=== PATIENT | female | born 1965 | race Caucasian/White ===

== ENCOUNTER 2017-11-22 17:37 | Emergency (ER) | payer OTHER ==
[2017-11-22 18:24] LABS: ABS Basophils 0 10^3/ul (0-0.2); ABS Eosinophils 0.3 10^3/ul (0-0.6); ABS Lymphocytes 3.1 10^3/ul (1.0-4.8); ABS Monocytes 0.4 10^3/ul (0-0.8); ABS Neutrophils 3.6 10^3/ul (1.5-7.7); ABS Nucleated RBC 0 10^3/ul; Eosinophil % 3.9 % (0-6); Hematocrit 39 % (35-47); Hemoglobin 13.1 g/dl (12.0-16.0); Lymphocyte % 41.6 % (25-47); Mean Corpuscular HGB Conc 34 g/dl (31-36); Mean Corpuscular Hemoglobin 31 pg (27-31); Mean Corpuscular Volume 91 fL (80-97); Mean Platelet Volume 7.5 um3 (7.4-10.4); Nucleated Red Blood Cells % 0; Platelet Count 272 10^3/ul (150-450); Red Blood Count 4.23 10^6/ul (4.0-5.4); Red Cell Distribution Width 13 % (10.5-15); White Blood Count 7.3 10^3/ul (3.5-10.8)
[2017-11-22 18:41] LABS: EGFR Non-African American 60.6 (>60)
[2017-11-22] MEDS ORDERED: Naproxen TAB* 250 MG PO ONE (20:04)
[2017-11-22] MEDS ORDERED: Cyclobenzaprine TAB* 10 MG PO ONE (20:04)
[2017-11-22 20:07] LABS: Urine Appearance Clear; Urine Blood Negative (Negative); Urine Color Straw; Urine Ketones Negative (Negative); Urine Protein Negative (Negative); Urine Specific Gravity 1.008 (1.010-1.030); Urine Urobilinogen Negative (Negative)
[2017-11-22 20:30] VITALS: BP 156/79
--- NOTE | 2017-11-22 22:04 | ED ---
Anthony Cifuentes Natalie, scribed for Chip Brunner MD on 11/22/17 at 2007 . Abdominal Pain/Female - HPI Summary HPI Summary: The patient is a 52 y/o F presenting to the ED accompanied by c/o constant RLQ abd pain since the night of 11/18/17. She lifted two cases of water , and the pain began immediately after. The pain is rated 8/10 in severity. The pain worsens with palpation and tension. The pain is alleviated by nothing. 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 She denies fever, nausea , vomiting, diarrhea, constipation, and urinary symptoms. She has hx of ovary removal and umbilical hernia. - History of Current Complaint Chief Complaint: EDAbdPain Stated Complaint: RT SIDE ABD PAIN Time Seen by Provider: 11/22/17 19:54 Hx Obtained From: Patient Hx Last Menstrual Period: 2 weeks ago Onset/Duration: Sudden Onset, Lasting Days - starting 11/18/17, Still Present Timing: Constant Severity Initially: Severe Severity Currently: Severe Pain Intensity: 8 Pain Scale Used: 0-10 Numeric Location: Discrete At: RLQ Radiates: No Aggravating Factor(s): Other: - palpation and tension Alleviating Factor(s): Nothing Associated Signs and Symptoms: Negative: Fever, Constipation, Urinary Symptoms, Nausea, Vomiting, Diarrhea Allergies/Adverse Reactions: Allergies Allergy/AdvReac Type Severity Reaction Status Date / Time latex Allergy Hives Verified 11/22/17 17:43 Penicillins Allergy Hives/Diff. Verified 11/22/17 17:43 Breathing/I tching shellfish derived Allergy Anaphylatic Verified 11/22/17 17:44 Shock strawberry Allergy Hives Verified 11/22/17 17:43 [place] Fish Allergy Airway Uncoded 05/30/16 20:00 Obstruction PMH/Surg Hx/FS Hx/Imm Hx Endocrine/Hematology History: Denies: Hx Diabetes, Hx Thyroid Disease Cardiovascular History: Denies: Hx Hypertension, Hx Pacemaker/ICD Respiratory History: Reports: Hx Asthma Denies: Hx Chronic Obstructive Pulmonary Disease (COPD) GI History: Denies: Hx Ulcer History: Denies: Hx Renal Disease Sensory History: Denies: Hx Hearing Aid Psychiatric History: Denies: Hx Panic Disorder - Cancer History Hx Chemotherapy: No Hx Radiation Therapy: No - Surgical History Surgery Procedure, Year, and Place: umbilical hernia 2000. ovary removed Infectious Disease History: Yes Infectious Disease History: Denies: Hx Clostridium Difficile, Hx Hepatitis, Hx Human Immunodeficiency Virus (HIV), Hx of Known/Suspected MRSA, Hx Shingles, Hx Tuberculosis, Hx Known/ Suspected VRE, Hx Known/Suspected VRSA, History Other Infectious Disease, Traveled Outside the [place] in Last 30 Days - Family History Known Family History: Positive: Hypertension - Social History Alcohol Use: None Substance Use Type: Reports: None Smoking Status (MU): Heavy Every Day Tobacco Smoker Type: Cigarettes Amount Used/How Often: 1 ppd Length of Time of Smoking/Using Tobacco: 30 years Have You Smoked in the Last Year: Yes Review of Systems Negative: Fever Positive: Abdominal Pain - RLQ. Negative: Vomiting, Diarrhea, Nausea Genitourinary: Negative - urinary symptoms All Other Systems Reviewed And Are Negative: Yes Physical Exam - Summary Physical Exam Summary: Appearance: Well appearing, no pain distress Skin: warm, dry, reflects adequate perfusion Head/face: normal Eyes: EOMI, HANANE ENT: normal Neck: supple, non-tender Respiratory: CTA, breath sounds present Cardiovascular: RRR, pulses symmetrical Abdomen: Soft. Tenderness in abd wall in right mid abd through suprapubic area. RLQ was palpated through the flank without tenderness, rebound, or guarding. Pain with movement. The area was examined with bedside ultrasound; there was no hematoma or hernia present in the exam. Abdominal binding was applied. Bowel Sounds: present Musculoskeletal: normal, strength/ROM intact Neuro: normal, sensory motor intact, A&Ox3 Triage Information Reviewed: Yes Vital Signs On Initial Exam: Initial Vitals Temp Pulse Resp BP Pulse Ox 97.3 F 78 15 152/70 100 11/22/17 17:40 11/22/17 17:40 11/22/17 17:40 11/22/17 17:40 11/22/17 17:40 Vital Signs Reviewed: Yes Diagnostics - Vital Signs Vital Signs Temp Pulse Resp BP Pulse Ox 11/22/17 17:40 97.3 F 78 15 152/70 100 - Laboratory Lab Results: Lab Results 11/22/17 11/22/17 11/22/17 Range/Units 18:14 18:14 18:14 WBC 7.3 (3.5-10.8) 10^3/ul RBC 4.23 (4.0-5.4) 10^6/ul Hgb 13.1 (12.0-16.0) g/dl Hct 39 (35-47) % MCV 91 (80-97) fL MCH 31 (27-31) pg MCHC 34 (31-36) g/dl RDW 13 (10.5-15) % Plt Count 272 (150-450) 10^3/ul MPV 7.5 (7.4-10.4) um3 Neut % (Auto) 48.7 (38-83) % Lymph % (Auto) 41.6 (25-47) % [place] % (Auto) 5.2 (0-7) % Eos % (Auto) 3.9 (0-6) % Baso % (Auto) 0.6 (0-2) % Absolute Neuts (auto) 3.6 (1.5-7.7) 10^3/ul Absolute Lymphs (auto) 3.1 (1.0-4.8) 10^3/ul Absolute Monos (auto) 0.4 (0-0.8) 10^3/ul Absolute Eos (auto) 0.3 (0-0.6) 10^3/ul Absolute Basos (auto) 0 (0-0.2) 10^3/ul Absolute Nucleated RBC 0 10^3/ul Nucleated RBC % 0 Sodium 139 (139-145) mmol/L Potassium 4.0 (3.5-5.0) mmol/L Chloride 105 (101-111) mmol/L Carbon Dioxide 28 (22-32) mmol/L Anion Gap 6 (2-11) mmol/L BUN 16 (6-24) mg/dL Creatinine 0.96 H (0.51-0.95) mg/dL Est GFR ( Amer) 77.9 (>60) Est GFR (Non-Af Amer) 60.6 (>60) BUN/Creatinine Ratio 16.7 (8-20) Glucose 99 (70-100) mg/dL Lactic Acid 0.4 L (0.5-2.0) mmol/L Calcium 9.0 (8.6-10.3) mg/dL Total Bilirubin 0.30 (0.2-1.0) mg/dL AST 12 L (13-39) U/L ALT 8 (7-52) U/L Alkaline Phosphatase 103 (34-104) U/L C-Reactive Protein 6.10 H (< 5.00) mg/L Total Protein 6.9 (6.4-8.9) g/dL Albumin 4.1 (3.2-5.2) g/dL Globulin 2.8 (2-4) g/dL Albumin/Globulin Ratio 1.5 (1-3) Lipase 10 L (11.0-82.0) U/L Result Diagrams: 11/22/17 18:14 11/22/17 18:14 Lab Statement: Any lab studies that have been ordered have been reviewed, and results considered in the medical decision making process. Abdominal Pain Fem Course/Dx - Course Course Of Treatment: Patient with abrupt onset of pain in her right low abdomen after lifting 2 cases of water. She has no pain at rest. I was able to examine the right lower quadrant through the flank and there is no tenderness underneath the abdominal wall. It appears she has been treated to the rectus musculature. I examined it with bedside ultrasound which showed no hematoma, fluid collection or hernia in the area of discomfort. She was given an abdominal binder which helped and treated with oral medications. Her abdominal laboratories are benign. She is discharged in good condition to follow up with her primary care physician which was provided to her. - Diagnoses Differential Diagnosis: Positive: Other - Abdominal wall pain, appendicitis, ovarian cyst, diverticulitis, AAA Provider Diagnoses: Strain of rectus abdominis muscle Discharge - Sign-Out/Discharge Documenting (check all that apply): Discharge/Admit/Transfer - Discharge Plan Condition: Good Disposition: HOME Prescriptions: Cyclobenzaprine (NF) [Cyclobenzaprine 5 MG (NF)] 5 mg PO TID PRN #12 tab PRN Reason: muscle pain Naproxen [Naproxen 500 mg tab] 500 mg PO DAILY PRN #10 tablet. PRN Reason: Pain Patient Education Materials: Abdominal Exercises (GEN) Referrals: [facility] [Outside] Additional Instructions: Massage, icing and stretching may help. Call a chiropractor for therapy in the area. Return with fever, vomiting, worse or other concerns as discussed. Where the provided abdominal binder as needed for discomfort. - Billing Disposition and Condition Condition: GOOD Disposition: HOME The documentation as recorded by the Anthony ryan Natalie accurately reflects the service I personally performed and the decisions made by Myesha cr Kirk, MD.
== END 2017-11-22 20:30 | disposition home or self-care (01) ==
LOC: ED 17:37
DX: S39.011A Strain of muscle, fascia and tendon of abdomen, initial encounter (principal); X50.0XXA Overexertion from strenuous movement or load, initial encounter; Y92.9 Unspecified place or not applicable; F17.210 Nicotine dependence, cigarettes, uncomplicated; Z88.0 Allergy status to penicillin
CPT/HCPCS: 36415; 80053; 81003; 83605; 83690; 85025; 86140; 99282; A9270-GY

== ENCOUNTER → 2018-02-18 15:25 | Emergency (ER) | payer OTHER ==
[~2018-02-18 15:25] MED LIST: Ibuprofen TAB* 800 MG PO ONE
[2018-02-18 15:40] VITALS: BP 145/73
--- NOTE | 2018-02-18 16:33 | ED ---
Upper Extremity Pain - HPI Summary HPI Summary: [id number] patient presents with right elbow pain since smacking her elbow against the door frame 2 days ago. She reports she was attempting to carry objects into her house and as she was walking to the door frame, she struck her right elbow against the metal frame causing her pain. She developed swelling and redness progressed over the next 2 days. Swelling is migrating into her proximal forearm. She is able to flex and extend her elbow however it is painful. She denies numbness tingling or weakness however she has a pain that radiates into her index finger. This is not made worse with movements. 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 She has tried ibuprofen which helps with the pain. She has not tried any ice but is open to trying this today. Denies fever, chills, fatigue. She has no other health issues and takes no medications. - History of Current Complaint Chief Complaint: EDExtremityUpper Stated Complaint: RT ELBOW INJURY Time Seen by Provider: 02/18/18 15:47 Hx Obtained From: Patient, Family/Business Data Analyst - , son Hx Last Menstrual Period: 2 weeks ago - Allergies/Home Medications Allergies/Adverse Reactions: Allergies Allergy/AdvReac Type Severity Reaction Status Date / Time latex Allergy Hives Verified 02/18/18 15:41 Penicillins Allergy Hives/Diff. Verified 02/18/18 15:41 Breathing/I tching shellfish derived Allergy Anaphylatic Verified 02/18/18 15:41 Shock strawberry Allergy Hives Verified 02/18/18 15:41 [place] Fish Allergy Airway Uncoded 02/18/18 15:41 Obstruction Home Medications: Home Medications NK [No Home Medications Reported] 02/18/18 [History Confirmed 02/18/18] PMH/Surg Hx/FS Hx/Imm Hx Previously Healthy: Yes Endocrine/Hematology History: Denies: Hx Anticoagulant Therapy, Hx Blood Disorders, Hx Diabetes, Hx Thyroid Disease Cardiovascular History: Denies: Hx Hypertension, Hx Pacemaker/ICD Respiratory History: Reports: Hx Asthma Denies: Hx Chronic Obstructive Pulmonary Disease (COPD) GI History: Denies: Hx Ulcer History: Denies: Hx Renal Disease Sensory History: Reports: Hx Contacts or Glasses Denies: Hx Hearing Aid Opthamlomology History: Reports: Hx Contacts or Glasses Psychiatric History: Denies: Hx Panic Disorder - Cancer History Hx Chemotherapy: No Hx Radiation Therapy: No - Surgical History Surgery Procedure, Year, and Place: umbilical hernia 2000. 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 Lives: With Family Alcohol Use: None Hx Substance Use: No Substance Use Type: Reports: None Hx Tobacco Use: Yes Smoking Status (MU): Current Every Day Smoker Type: Cigarettes Amount Used/How Often: 1 ppd Length of Time of Smoking/Using Tobacco: 30 years Have You Smoked in the Last Year: Yes Review of Systems Constitutional: Negative Negative: Fever, Chills, Fatigue Positive: no symptoms reported Positive: Arthralgia, Myalgia, Decreased ROM - mild of the elbow, Edema Positive: Bruising Neurological: Negative Negative: Weakness, Paresthesia, Numbness Psychological: Normal All Other Systems Reviewed And Are Negative: Yes Physical Exam Triage Information Reviewed: Yes Vital Signs On Initial Exam: Initial Vitals Temp Pulse Resp BP Pulse Ox 98.3 F 101 17 145/73 100 02/18/18 15:32 02/18/18 15:32 02/18/18 15:32 02/18/18 15:32 02/18/18 15:32 Vital Signs Reviewed: Yes Appearance: Positive: Well-Appearing, Well-Nourished, Pain Distress - mild to moderate Skin: Positive: Warm, Skin Color Reflects Adequate Perfusion, Dry - mild erythema w/ ecchymosis over skin of posterior elbow - no streaking, no lesions, no skin breakdown ENT: Positive: Hearing grossly normal Respiratory/Lung Sounds: Positive: Breath Sounds Present Cardiovascular: Positive: Pulses are Symmetrical in both Upper and Lower Extremities Musculoskeletal: Positive: Strength/ROM Intact - can move into flexion and extension but causes pain in elbow; no gross deformity, Pain @ - elbow TTP Neurological: Positive: Normal, Sensory/Motor Intact, Alert, Oriented to Person Place, Time, CN Intact II-III Psychiatric: Positive: Normal Diagnostics - Vital Signs Vital Signs Temp Pulse Resp BP Pulse Ox 02/18/18 15:32 98.3 F 101 17 145/73 100 - Laboratory Lab Statement: Any lab studies that have been ordered have been reviewed, and results considered in the medical decision making process. Course/Dx - Course Course Of Treatment: XR w/o acute fx, dislocation or effusion. Suspect contusion w/ w/o some degree of bursitis. Advise RICE and f/u w/ PCP this week. If danger s/sx present, return to ED. - Diagnoses Provider Diagnoses: Contusion of right elbow Discharge - Sign-Out/Discharge Documenting (check all that apply): Patient Departure - Discharge Plan Condition: Stable Disposition: HOME Patient Education Materials: Contusion in Adults (ED) Forms: *Work Release Referrals: [facility] [Outside] Additional Instructions: Rest, ice, elevate and compress with COLEEN wrap Take ibuprofen with food every 6 hours as needed for pain/swelling Follow-up with PCP at end of this week - call Tuesday to schedule an appointment - if worse, may warrant further testing *if you develop numbness, tingling, weakness, return to ED - Billing Disposition and Condition Condition: STABLE Disposition: Home
--- NOTE | 2018-02-18 17:14 | RAD ---
HISTORY: Rt elbow injury - slammed into door COMPARISONS: None VIEWS: 4, Frontal, lateral, and oblique views of the right elbow FINDINGS: BONE DENSITY: Normal. BONES: There is no displaced fracture. JOINTS: There is no arthropathy. ALIGNMENT: There is no dislocation. SOFT TISSUES: There is soft tissue swelling along the right than on. OTHER FINDINGS: None. IMPRESSION: SOFT TISSUE SWELLING. NO ACUTE OSSEOUS INJURY. IF SYMPTOMS PERSIST, RECOMMEND REPEAT IMAGING.
== END | disposition home or self-care (01) ==
LOC: ED 15:25
DX: S50.01XA Contusion of right elbow, initial encounter (principal); W22.09XA Striking against other stationary object, initial encounter; Y93.9 Activity, unspecified; Y92.008 Other place in unspecified non-institutional (private) residence as the place of occurrence of the external cause; Z91.040 Latex allergy status; Z88.0 Allergy status to penicillin; Z91.013 Allergy to seafood; Z91.018 Allergy to other foods; F17.210 Nicotine dependence, cigarettes, uncomplicated
CPT/HCPCS: 99282; A9270-GY

== ENCOUNTER 2018-07-01 14:10 | Emergency (ER) | payer OTHER ==
[2018-07-01 14:35] VITALS: BP 142/69
--- NOTE | 2018-07-01 14:52 | UC ---
Lower Extremity/Ankle HPI - HPI Summary HPI Summary: Pt fell today and while she was falling got her R ankle caught between two tree stumps which held her ankle in place. She was chasing her dog. reports some pain when walking. - History of Current Complaint Chief Complaint: UCLowerExtremity Stated Complaint: R FOOT INJURY Time Seen by Provider: 07/01/18 14:39 Hx Obtained From: Patient Hx Last Menstrual Period: na ?: No Onset/Duration: Sudden Onset Pain Intensity: 8 Pain Scale Used: 0-10 Numeric Aggravating Factor(s): Standing, Ambulation Alleviating Factor(s): Rest Able to Bear Weight: No - Allergies/Home Medications Allergies/Adverse Reactions: Allergies Allergy/AdvReac Type Severity Reaction Status Date / Time latex Allergy Hives Verified 07/01/18 14:35 Penicillins Allergy Hives/Diff. Verified 07/01/18 14:35 Breathing/I tching shellfish derived Allergy Anaphylatic Verified 07/01/18 14:35 Shock strawberry Allergy Hives Verified 07/01/18 14:35 [place] Fish Allergy Airway Uncoded 07/01/18 14:35 Obstruction PMH/Surg Hx/FS Hx/Imm Hx Previously Healthy: Yes Other History Of: Negative For: Anticoagulant Therapy - Surgical History Surgical History: Yes Surgery Procedure, Year, and Place: umbilical hernia 2000. ovary removed - Family History Known Family History: Positive: Cardiac Disease, Hypertension, Diabetes, Other - hyperlipidemia, gout, cancer - Social History Alcohol Use: None Substance Use Type: None Smoking Status (MU): Current Every Day Smoker Type: Cigarettes Amount Used/How Often: 1 ppd Length of Time of Smoking/Using Tobacco: 30 years Have You Smoked in the Last Year: Yes Review of Systems All Other Systems Reviewed And Are Negative: Yes Constitutional: Positive: Negative Skin: Positive: Negative. Negative: Bruising Motor: Negative: Decreased ROM, Weakness Neurovascular: Negative: Decreased Sensation, Decreased Pulses Musculoskeletal: Positive: Arthralgia - R ankle Physical Exam Triage Information Reviewed: Yes Appearance: Well-Appearing Vital Signs: Initial Vital Signs Temp 97.9 F 07/01/18 14:31 Pulse 80 07/01/18 14:31 Resp 18 07/01/18 14:31 BP 142/69 07/01/18 14:31 Pulse Ox 100 07/01/18 14:31 Vital Signs Reviewed: Yes Respiratory Exam: Normal Cardiovascular Exam: Normal Musculoskeletal: Positive: Strength Intact, ROM Intact, No Edema Skin Exam: Normal Lower Extremity Course/Dx - Course Course Of Treatment: Pt fell today and while she was falling got her R ankle caught between two tree stumps which held her ankle in place. XRAYs unremarkable and exam did show some tenderness w/out swelling or bruising. - Differential Dx/Diagnosis Differential Diagnosis/HQI/PQRI: Arthritis, Contusion, Fracture (Closed), Sprain , Strain Provider Diagnosis: Ankle sprain Discharge - Sign-Out/Discharge Documenting (check all that apply): Patient Departure All imaging exams completed and their final reports reviewed: Yes - Discharge Plan Condition: Good Disposition: HOME Prescriptions: Ibuprofen [Ibu] 600 mg PO TID #60 tablet Patient Education Materials: Foot Sprain (ED) Referrals: No Primary Care Phys,NOPCP [Primary Care Provider] - Additional Instructions: if pain persists please follow up with your pcp - Billing Disposition and Condition Condition: GOOD Disposition: Home
== END 2018-07-01 15:25 | disposition home or self-care (01) ==
LOC: UCEAST 14:10
DX: M25.571 Pain in right ankle and joints of right foot (principal); F17.210 Nicotine dependence, cigarettes, uncomplicated; Z88.0 Allergy status to penicillin; Z91.040 Latex allergy status; Z91.018 Allergy to other foods; Z91.013 Allergy to seafood; W19.XXXA Unspecified fall, initial encounter; Y92.9 Unspecified place or not applicable; W23.0XXA Caught, crushed, jammed, or pinched between moving objects, initial encounter
CPT/HCPCS: 99212; G0463

== ENCOUNTER 2018-10-05 15:29 | Emergency (ER) | payer BC, OTHER ==
[2018-10-05] MEDS ORDERED: Nitroglycerin TAB 0.4 MG* 0.4 MG TAB SL ONE (15:48)
[2018-10-05] MEDS ORDERED: Aspirin 81 mg CHEW TAB* 81 MG TAB.CHEW PO ONE (15:50)
[2018-10-05 16:12] LABS: ABS Basophils 0 10^3/ul (0-0.2); ABS Eosinophils 0.2 10^3/ul (0-0.6); ABS Monocytes 0.3 10^3/ul (0-0.8); ABS Neutrophils 2.5 10^3/ul (1.5-7.7); ABS Nucleated RBC 0 10^3/ul; Eosinophil % 3.9 %; Hematocrit 40 % (33-41); Hemoglobin 13.5 g/dL (12.0-16.0); Lymphocyte % 49.1 %; Mean Corpuscular HGB Conc 34 g/dL (31-36); Mean Corpuscular Hemoglobin 31 pg (27-31); Mean Corpuscular Volume 91 fL (80-97); Mean Platelet Volume 7.6 fL (7.4-10.4); Nucleated Red Blood Cells % 0.1; Platelet Count 273 10^3/uL (150-450); Red Blood Count 4.34 10^6 /uL (3.70-4.87); Red Cell Distribution Width 13 % (10.5-15); White Blood Count 6.1 10^3/uL (3.5-10.8)
[2018-10-05 16:28] LABS: INR 0.89 (0.77-1.02)
[2018-10-05 16:31] LABS: Albumin 4.5 g/dL (3.2-5.2); Albumin/Globulin Ratio 1.6 (1-3); BUN/Creatinine Ratio 17.9 (8-20); Calcium 9.7 mg/dL (8.6-10.3); EGFR African American 85.2 (>60); EGFR Non-African American 70.4 (>60); Globulin 2.9 g/dL (2-4); Magnesium 1.8 mg/dL (1.9-2.7); Potassium 3.7 mmol/L (3.5-5.0); Total Bilirubin 0.4 mg/dL (0.2-1.0); Total Protein 7.4 g/dL (6.4-8.9)
[2018-10-05 16:49] LABS: TSH (Thyroid Stimulating Horm) 6.74 mcIU/mL (0.34-5.60)
--- NOTE | 2018-10-05 19:04 | ED ---
HPI Chest Pain - HPI Summary HPI Summary: Patient complains of sudden onset left side chest pain starting at 1 PM with radiation to left arm and numbness and tingling in left hand. Chest pain described as constant, stabbing, pressure, new onset. Occurred while patient was cooking, at worst 10/10. Chest pain here in the ED rated 6/10 during history of present illness. Patient denies trauma, SOB, fever, cough, sore throat, N/V/D, diaphoresis, abdominal pain, change in urine, change in BM. Also denies street estrogen supplements, blood clots, recent surgery, recent trauma, recent long travel, history of recent immobility or unilateral leg pain. Patient denies medical history, but states she does not have a primary care doctor and has not seen one for as long as she can remember. Positive family cardiac history, mom had PR and CVA at age 65. Positive smoker for many years, denies EtOH or recreational stimulants. - History of Current Complaint Chief Complaint: EDChestPainROMI Time Seen by Provider: 10/05/18 15:37 Hx Obtained From: Patient Hx Last Menstrual Period: na Onset/Duration: Started Hours Ago Timing: Constant, Lasting Hours Initial Severity: Mild Current Severity: Moderate Pain Intensity: 6 Pain Scale Used: 0-10 Numeric Chest Pain Radiates: Yes Chest Pain Radiates To:: Arm Character: Pressure/Squeezing, Sharp/Stabbing Aggravating Factor(s): Nothing Alleviating Factor(s): Nothing Associated Signs and Symptoms: Positive: Chest Pain, Numbness, Tingling - Allergy/Home Medications Allergies/Adverse Reactions: Allergies Allergy/AdvReac Type Severity Reaction Status Date / Time latex Allergy Hives Verified 10/05/18 15:35 Penicillins Allergy Hives/Diff. Verified 10/05/18 15:35 Breathing/I tching shellfish derived Allergy Anaphylatic Verified 10/05/18 15:35 Shock strawberry Allergy Hives Verified 10/05/18 15:35 Sampson Fish Allergy Airway Uncoded 07/01/18 14:35 Obstruction PMH/Surg Hx/FS Hx/Imm Hx Endocrine/Hematology History: Denies: Hx Anticoagulant Therapy, Hx Blood Disorders, Hx Diabetes, Hx Thyroid Disease Cardiovascular History: Denies: Hx Hypertension, Hx Pacemaker/ICD Respiratory History: Reports: Hx Asthma Denies: Hx Chronic Obstructive Pulmonary Disease (COPD) GI History: Denies: Hx Ulcer History: Denies: Hx Renal Disease Sensory History: Reports: Hx Contacts or Glasses Denies: Hx Hearing Aid Opthamlomology History: Reports: Hx Contacts or Glasses EENT History: Denies: Hx Deafness Neurological History: Denies: Hx Dementia Psychiatric History: Denies: Hx Panic Disorder - Cancer History Hx Chemotherapy: No Hx Radiation Therapy: No - Surgical History Surgery Procedure, Year, and Place: umbilical hernia 2000. ovary removed Infectious Disease History: No Infectious Disease History: Denies: Hx Clostridium Difficile, Hx Hepatitis, Hx Human Immunodeficiency Virus (HIV), Hx of Known/Suspected MRSA, Hx Shingles, Hx Tuberculosis, Hx Known/ Suspected VRE, Hx Known/Suspected VRSA, History Other Infectious Disease, Traveled Outside the [place] in Last 30 Days - Family History Known Family History: Positive: Cardiac Disease, Hypertension, Diabetes, Other - hyperlipidemia, gout, cancer - Social History Alcohol Use: None Hx Substance Use: No Substance Use Type: Reports: None Hx Tobacco Use: Yes Smoking Status (MU): Current Every Day Smoker Type: Cigarettes Amount Used/How Often: 1 ppd Length of Time of Smoking/Using Tobacco: 30 years Have You Smoked in the Last Year: Yes Review of Systems Constitutional: Negative Eyes: Negative ENT: Negative Positive: Chest Pain Respiratory: Negative Gastrointestinal: Negative Genitourinary: Negative Musculoskeletal: Negative Skin: Negative Neurological: Negative Psychological: Normal All Other Systems Reviewed And Are Negative: Yes Physical Exam - Summary Physical Exam Summary: Chest tender to palpation, but patient states is not exactly the same pain produced. Lung sounds clear to auscultation bilaterally. Heart regular rate and rhythm. Abdomen soft nontender. No signs of trauma to chest. Triage Information Reviewed: Yes Vital Signs On Initial Exam: Initial Vitals Temp Pulse Resp BP Pulse Ox 99.7 F 104 16 173/108 98 10/05/18 15:32 10/05/18 15:32 10/05/18 15:32 10/05/18 15:32 10/05/18 15:32 Vital Signs Reviewed: Yes Appearance: Positive: Well-Appearing Skin: Positive: Warm Head/Face: Positive: Normal Head/Face Inspection Eyes: Positive: Normal ENT: Positive: Normal ENT inspection Neck: Positive: Supple Respiratory/Lung Sounds: Positive: Clear to Auscultation Cardiovascular: Positive: Normal Abdomen Description: Positive: Nontender Musculoskeletal: Positive: Normal Neurological: Positive: Normal Psychiatric: Positive: Normal AVPU Assessment: Alert - Clifford Coma Scale Best Eye Response: 4 - Spontaneous Best Motor Response: 6 - Obeys Commands Best Verbal Response: 5 - Oriented Coma Scale Total: 15 Diagnostics - Vital Signs Vital Signs Temp Pulse Resp BP Pulse Ox 10/05/18 17:20 75 13 133/73 97 10/05/18 17:05 76 19 144/75 98 10/05/18 17:01 75 19 96 10/05/18 16:50 77 15 145/71 98 10/05/18 16:33 14 125/56 10/05/18 16:23 14 128/68 10/05/18 16:14 13 163/71 10/05/18 16:01 14 10/05/18 15:45 96 12 184/88 97 10/05/18 15:42 115 10/05/18 15:32 99.7 F 104 16 173/108 98 - Laboratory Lab Results: Lab Results 10/05/18 10/05/18 10/05/18 Range/Units 15:54 15:54 15:54 WBC 6.1 (3.5-10.8) 10^3/uL RBC 4.34 (3.70-4.87) 10^6 /uL Hgb 13.5 (12.0-16.0) g/dL Hct 40 (33-41) % MCV 91 (80-97) fL MCH 31 (27-31) pg MCHC 34 (31-36) g/dL RDW 13 (10.5-15) % Plt Count 273 (150-450) 10^3/uL MPV 7.6 (7.4-10.4) fL Neut % (Auto) 41.2 % Lymph % (Auto) 49.1 % [place] % (Auto) 5.3 % Eos % (Auto) 3.9 % Baso % (Auto) 0.5 % Absolute Neuts (auto) 2.5 (1.5-7.7) 10^3/ul Absolute Lymphs (auto) 3.0 (1.0-4.8) 10^3/ul Absolute Monos (auto) 0.3 (0-0.8) 10^3/ul Absolute Eos (auto) 0.2 (0-0.6) 10^3/ul Absolute Basos (auto) 0 (0-0.2) 10^3/ul Absolute Nucleated RBC 0 10^3/ul Nucleated RBC % 0.1 INR (Anticoag Therapy) 0.89 (0.77-1.02) D-Dimer, Quantitative < 200 (Less Than 230) ng/mL Sodium 140 (135-145) mmol/L Potassium 3.7 (3.5-5.0) mmol/L Chloride 106 (101-111) mmol/L Carbon Dioxide 27 (22-32) mmol/L Anion Gap 7 (2-11) mmol/L BUN 15 (6-24) mg/dL Creatinine 0.84 (0.51-0.95) mg/dL Est GFR ( Amer) 85.2 (>60) Est GFR (Non-Af Amer) 70.4 (>60) BUN/Creatinine Ratio 17.9 (8-20) Glucose 99 (70-100) mg/dL Lactic Acid (0.5-2.0) mmol/L Calcium 9.7 (8.6-10.3) mg/dL Magnesium 1.8 L (1.9-2.7) mg/dL Total Bilirubin 0.40 (0.2-1.0) mg/dL AST 15 (13-39) U/L ALT 13 (7-52) U/L Alkaline Phosphatase 99 (34-104) U/L Troponin I 0.00 (<0.04) ng/mL B-Natriuretic Peptide (<=100) pg/mL Total Protein 7.4 (6.4-8.9) g/dL Albumin 4.5 (3.2-5.2) g/dL Globulin 2.9 (2-4) g/dL Albumin/Globulin Ratio 1.6 (1-3) TSH 6.74 H (0.34-5.60) mcIU/mL 10/05/18 10/05/18 Range/Units 15:54 15:54 WBC (3.5-10.8) 10^3/uL RBC (3.70-4.87) 10^6 /uL Hgb (12.0-16.0) g/dL Hct (33-41) % MCV (80-97) fL MCH (27-31) pg MCHC (31-36) g/dL RDW (10.5-15) % Plt Count (150-450) 10^3/uL MPV (7.4-10.4) fL Neut % (Auto) % Lymph % (Auto) % [place] % (Auto) % Eos % (Auto) % Baso % (Auto) % Absolute Neuts (auto) (1.5-7.7) 10^3/ul Absolute Lymphs (auto) (1.0-4.8) 10^3/ul Absolute Monos (auto) (0-0.8) 10^3/ul Absolute Eos (auto) (0-0.6) 10^3/ul Absolute Basos (auto) (0-0.2) 10^3/ul Absolute Nucleated RBC 10^3/ul Nucleated RBC % INR (Anticoag Therapy) (0.77-1.02) D-Dimer, Quantitative (Less Than 230) ng/mL Sodium (135-145) mmol/L Potassium (3.5-5.0) mmol/L Chloride (101-111) mmol/L Carbon Dioxide (22-32) mmol/L Anion Gap (2-11) mmol/L BUN (6-24) mg/dL Creatinine (0.51-0.95) mg/dL Est GFR ( Amer) (>60) Est GFR (Non-Af Amer) (>60) BUN/Creatinine Ratio (8-20) Glucose (70-100) mg/dL Lactic Acid 1.3 (0.5-2.0) mmol/L Calcium (8.6-10.3) mg/dL Magnesium (1.9-2.7) mg/dL Total Bilirubin (0.2-1.0) mg/dL AST (13-39) U/L ALT (7-52) U/L Alkaline Phosphatase (34-104) U/L Troponin I (<0.04) ng/mL B-Natriuretic Peptide 17 (<=100) pg/mL Total Protein (6.4-8.9) g/dL Albumin (3.2-5.2) g/dL Globulin (2-4) g/dL Albumin/Globulin Ratio (1-3) TSH (0.34-5.60) mcIU/mL Result Diagrams: 10/05/18 15:54 10/05/18 15:54 Lab Statement: Any lab studies that have been ordered have been reviewed, and results considered in the medical decision making process. Chest Pain Course/Dx - Course Course Of Treatment: Patient complains of sudden onset left side chest pain starting at 1 PM with radiation to left arm and numbness and tingling in left hand. Chest pain described as constant, stabbing, pressure, new onset. Occurred while patient was cooking, at worst 10/10. Chest pain here in the ED rated 6/10 during history of present illness. Patient denies trauma, SOB, fever , cough, sore throat, N/V/D, diaphoresis, abdominal pain, change in urine, change in BM. Also denies street estrogen supplements, blood clots, recent surgery, recent trauma, recent long travel, history of recent immobility or unilateral leg pain. Patient denies medical history, but states she does not have a primary care doctor and has not seen one for as long as she can remember. Positive family cardiac history, mom had PR and CVA at age 65. Positive smoker for many years, denies EtOH or recreational stimulants. Physical exam:Chest tender to palpation, but patient states is not exactly the same pain produced. Lung sounds clear to auscultation bilaterally. Heart regular rate and rhythm. Abdomen soft nontender. No signs of trauma to chest. Patient initially tachycardic, with elevated blood pressure of 183 SBP. Patient was given aspirin and 1 sublingual nitrogen which reduced her blood pressure to 118 SBP where it has remained. Patient states chest pain dropped from 7/10 to 5/10. On reexam: patient's chest pain continues to improve, now rated 4/10, in no apparent distress, playing with her phone. Labs unremarkable. First and second cardiac enzymes normal. First EKG sinus rhythm with some mild possible ST depression changes in V5 when compared to prior from 2010. Second EKG sinus rhythm without change from EKG 2011. Chest x-ray unremarkable. Discussed patient with attending Dr. Aguillon who recommends admission for stress test, given risk factors of family history, smoking and unknown medical history, and response to nitroglycerin SL. After confirming repeatedly that there have been no trauma or lifting involved prior to incident of chest pain, patient admitted to hospitalist that she had been lifting rocks as potatoes the day before. Patient also affirmed multiple times that she was okay being admitted for further evaluation of chest pain, and then changed her mind when evaluated by hospitalists. Consult by hospitalists who recommended patient be discharged with naproxen 500 twice a day and follow-[facility] with [facility]. Patient understands and approves of plan. - Diagnoses Provider Diagnoses: Chest wall pain Discharge - Sign-Out/Discharge Documenting (check all that apply): Patient Departure Patient Received Moderate/Deep Sedation with Procedure: No - Discharge Plan Condition: Stable Disposition: HOME Prescriptions: Naproxen [Naproxen 500 mg tab] 500 mg PO BID 8 Days #16 tablet. Patient Education Materials: Chest Pain (ED) Referrals: No Primary Care Phys,NOPCP [Primary Care Provider] - [facility] [Outside] Additional Instructions: Take naproxen twice a day for chest wall pain. [facility] with [facility] for further evaluation. Return to the ED for any new or worsening symptoms. - Billing Disposition and Condition Condition: STABLE Disposition: Home
[2018-10-05] MEDS ORDERED: Naproxen TAB* 250 MG PO ONE (20:17)
--- NOTE | 2018-10-05 20:17 | CONSULT ---
Subjective Date of Service: 10/05/18 Interval History: Ms. Lee is a 53 year old female with no reported medical history that presented to the ER today with complaint of chest pain. We are asked to evaluate the patient for potential admission for r/o ACS. The patient reports she was lifting a heavy pot of food at work when she felt a stabbing left sided chest pain. Patient states the pain persisted and radiated into the left shoulder and arm, her co-worker recommended she come for evaluation. She was given nitro in the ER with minimal relief. She exhibits no EKG changes, troponins are negative, labs are unremarkable. BP was slightly elevated. Family History: Findings - father with CAD Social History: Findings - tobacco use Past Medical History: Findings - none, no PCP or recent follow up Review of Systems - Measurements Intake and Output: Intake and Output Last 24 Hours 10/03/18 10/04/18 10/05/18 10/06/18 06:59 06:59 06:59 06:59 Weight 160 lb - Review of Systems Constitutional Symptoms: Negative: Weight Gain, Weight Loss, Weakness, Fatigue, Fever, Night Sweats, Unexplained Falls, Other Dermatology: Negative: Normal, Rash, Skin Lesions, Cancer, Skin Lumps, Other HEENT: Negative: Normal, Change in Hearing, Vertigo, Dental Problems, Tinnitus, Sinus Problem, Other Eyes: Negative: Normal, Change in Vision, Double Vision, Eye Pain, Glaucoma, Cataract, Contacts or Glasses, Other Thyroid: Negative: Normal, Goiter, Thyroid Nodule, Cold Intolerance, Heat Intolerance , Sweatiness, Tremor, Frequent Defecation, Constipation, Palpitations, Primary Hypothyroidism, Primary Hyperthyroidism, Weight Loss, Weight Gain, Change in Skin/Hair, Change in Menstruation, Radiation Exposure, Other Pulmonary: Negative: Normal, Cough, Sputum, Hemoptysis, Wheezing, Respiratory Distress, Shortness of Breath, COPD, Asthma, Exercise Intolerance, Home Oxygen, Other Cardiology: Positive: Chest Pain - left chest wall pain Negative: Normal, Shortness of Breath, Palpitations, Swelling of Ankles, Peripheral Vascular Dis, Edema, Faintness, Syncope, Claudication, Proximal NocturnalDyspnea, Orthopnoea, Other Gastroenterology: Negative: Normal, Abdominal Pain, Nausea, Vomiting, Anorexia, Indigestion, Difficulty Swallowing, Heartburn, Constipation, Diarrhea, Blood in Stools, Change in Bowel Habits, Haematemesis, Melena, Other Genital - Urinary: Negative: Normal, Dysuria, Hematuria, Polyuria, Nocturia, Other Genitourinay - Female: Negative: Menses Normal, Vaginal Discharge, Menopause, Dysmenorrhea, Other Musculoskeletal: Negative: Joint Pain, Joint Stiffness, Arthritis, Osteoporosis, Low Back Pain , Sciatica, Joint Deformities, Kyphoscoliosis, Other Endocrinology: Negative: Normal, Thyroid Problems, Adrenal Problems, Gonadal Problems, Family Hx Endocrine Disorders, Obesity, Diabetes Mellitus, Hyperglycemia, Hx Hypoglycemia, Diabetic Foot Ulcers, Calluses, Hirsutism, Menstral Abnormalities , Polydipsia, Polyuria, Gonadal Problems, Gynecomastia, Pituitary disease, Other Hematologic/Lymphatic: Negative: Anemia, Easy Brusing, Hx Leukemia, Hx Lymphoma, Use of Anticoagulant, Use of Antiplatelet Drugs, Other Neurology: Negative: Normal, Headache, Migraines, Change in Vision, Diplopia, Dizziness , Change in Balancing, Change in Coordination, Change in Memory, Change in Speech, Change in Sphincter Function, Change in Walking, Numbness\Paresthesiae, Unexplained Weakness, Hx of Stroke\TIA, Hx of Seizures, Other Psychiatry: Negative: Normal, Depression, Anxiety, Depressed Mood, Adhedonia, Sexual Dysfunction, Weight Change, Guilt Feelings, Tearfulness, Unusual Fatigue, Unusual Anxiety, Suicidal Ideation, Hypomania, Eating Disorders, Other Allergic/Immunologic: Negative: Hx Anaphylaxis, Hx Angioedema, Hx Environmental, Hx Seasonal, Athsma, Hx HIV, Immunocompromise, Swollen Glands LymphNodes, Other Objective Vital Signs - 8 hr 10/05/18 10/05/18 10/05/18 15:32 15:42 15:45 Temperature 99.7 F Pulse Rate 104 96 Respiratory 16 115 12 Rate Blood Pressure 173/108 184/88 (mmHg) O2 Sat by Pulse 98 97 Oximetry 10/05/18 10/05/18 10/05/18 16:01 16:14 16:23 Temperature Pulse Rate Respiratory 14 13 14 Rate Blood Pressure 163/71 128/68 (mmHg) O2 Sat by Pulse Oximetry 10/05/18 10/05/18 10/05/18 16:33 16:50 17:01 Temperature Pulse Rate 77 75 Respiratory 14 15 19 Rate Blood Pressure 125/56 145/71 (mmHg) O2 Sat by Pulse 98 96 Oximetry 04/04/19 04/04/19 04/04/19 17:05 17:20 17:35 Temperature Pulse Rate 76 75 76 Respiratory 19 13 10 Rate Blood Pressure 144/75 133/73 137/66 (mmHg) O2 Sat by Pulse 98 97 96 Oximetry 10/05/18 10/05/18 10/05/18 17:50 18:01 18:05 Temperature Pulse Rate 74 75 77 Respiratory 15 15 16 Rate Blood Pressure 135/68 110/53 (mmHg) O2 Sat by Pulse 95 97 97 Oximetry 10/05/18 10/05/18 10/05/18 18:20 18:35 18:50 Temperature Pulse Rate 77 80 Respiratory 16 20 15 Rate Blood Pressure 128/65 118/66 119/70 (mmHg) O2 Sat by Pulse 99 98 Oximetry 10/05/18 10/05/18 19:00 19:05 Temperature Pulse Rate 78 74 Respiratory 13 21 Rate Blood Pressure 121/62 (mmHg) O2 Sat by Pulse 97 95 Oximetry Oxygen Devices in Use Now: None Appearance: alert, well appearing, NAD Eyes: No Scleral Icterus, PERRLA Ears/Nose/Mouth/Throat: NL Teeth, Lips, Gums, Mucous Membranes Moist Neck: NL Appearance and Movements; NL JVP, Trachea Midline Respiratory: Symmetrical Chest Expansion and Respiratory Effort, Clear to Auscultation Cardiovascular: NL Sounds; No Murmurs; No JVD - left chest wall pain reproducible with pal, RRR, No Edema Abdominal: NL Sounds; No Tenderness; No Distention Extremities: No Edema, No Clubbing, Cyanosis Skin: No Rash or Ulcers Neurological: Alert and Oriented x 3, NL Sensation, NL Gait, NL Muscle Strength and Tone Nutrition: Taking PO's Result Diagrams: 10/05/18 15:54 10/05/18 15:54 Additional Lab and Data: Lab Results 10/05/18 10/05/18 10/05/18 Range/Units 15:54 15:54 15:54 WBC 6.1 (3.5-10.8) 10^3/uL RBC 4.34 (3.70-4.87) 10^6 /uL Hgb 13.5 (12.0-16.0) g/dL Hct 40 (33-41) % MCV 91 (80-97) fL MCH 31 (27-31) pg MCHC 34 (31-36) g/dL RDW 13 (10.5-15) % Plt Count 273 (150-450) 10^3/uL MPV 7.6 (7.4-10.4) fL Neut % (Auto) 41.2 % Lymph % (Auto) 49.1 % [place] % (Auto) 5.3 % Eos % (Auto) 3.9 % Baso % (Auto) 0.5 % Absolute Neuts (auto) 2.5 (1.5-7.7) 10^3/ul Absolute Lymphs (auto) 3.0 (1.0-4.8) 10^3/ul Absolute Monos (auto) 0.3 (0-0.8) 10^3/ul Absolute Eos (auto) 0.2 (0-0.6) 10^3/ul Absolute Basos (auto) 0 (0-0.2) 10^3/ul Absolute Nucleated RBC 0 10^3/ul Nucleated RBC % 0.1 INR (Anticoag Therapy) 0.89 (0.77-1.02) D-Dimer, Quantitative < 200 (Less Than 230) ng/mL Sodium 140 (135-145) mmol/L Potassium 3.7 (3.5-5.0) mmol/L Chloride 106 (101-111) mmol/L Carbon Dioxide 27 (22-32) mmol/L Anion Gap 7 (2-11) mmol/L BUN 15 (6-24) mg/dL Creatinine 0.84 (0.51-0.95) mg/dL Est GFR ( Amer) 85.2 (>60) Est GFR (Non-Af Amer) 70.4 (>60) BUN/Creatinine Ratio 17.9 (8-20) Glucose 99 (70-100) mg/dL Lactic Acid (0.5-2.0) mmol/L Calcium 9.7 (8.6-10.3) mg/dL Magnesium 1.8 L (1.9-2.7) mg/dL Total Bilirubin 0.40 (0.2-1.0) mg/dL AST 15 (13-39) U/L ALT 13 (7-52) U/L Alkaline Phosphatase 99 (34-104) U/L Troponin I 0.00 (<0.04) ng/mL B-Natriuretic Peptide (<=100) pg/mL Total Protein 7.4 (6.4-8.9) g/dL Albumin 4.5 (3.2-5.2) g/dL Globulin 2.9 (2-4) g/dL Albumin/Globulin Ratio 1.6 (1-3) TSH 6.74 H (0.34-5.60) mcIU/mL 10/05/18 10/05/18 Range/Units 15:54 15:54 WBC (3.5-10.8) 10^3/uL RBC (3.70-4.87) 10^6 /uL Hgb (12.0-16.0) g/dL Hct (33-41) % MCV (80-97) fL MCH (27-31) pg MCHC (31-36) g/dL RDW (10.5-15) % Plt Count (150-450) 10^3/uL MPV (7.4-10.4) fL Neut % (Auto) % Lymph % (Auto) % [place] % (Auto) % Eos % (Auto) % Baso % (Auto) % Absolute Neuts (auto) (1.5-7.7) 10^3/ul Absolute Lymphs (auto) (1.0-4.8) 10^3/ul Absolute Monos (auto) (0-0.8) 10^3/ul Absolute Eos (auto) (0-0.6) 10^3/ul Absolute Basos (auto) (0-0.2) 10^3/ul Absolute Nucleated RBC 10^3/ul Nucleated RBC % INR (Anticoag Therapy) (0.77-1.02) D-Dimer, Quantitative (Less Than 230) ng/mL Sodium (135-145) mmol/L Potassium (3.5-5.0) mmol/L Chloride (101-111) mmol/L Carbon Dioxide (22-32) mmol/L Anion Gap (2-11) mmol/L BUN (6-24) mg/dL Creatinine (0.51-0.95) mg/dL Est GFR ( Amer) (>60) Est GFR (Non-Af Amer) (>60) BUN/Creatinine Ratio (8-20) Glucose (70-100) mg/dL Lactic Acid 1.3 (0.5-2.0) mmol/L Calcium (8.6-10.3) mg/dL Magnesium (1.9-2.7) mg/dL Total Bilirubin (0.2-1.0) mg/dL AST (13-39) U/L ALT (7-52) U/L Alkaline Phosphatase (34-104) U/L Troponin I (<0.04) ng/mL B-Natriuretic Peptide 17 (<=100) pg/mL Total Protein (6.4-8.9) g/dL Albumin (3.2-5.2) g/dL Globulin (2-4) g/dL Albumin/Globulin Ratio (1-3) TSH (0.34-5.60) mcIU/mL EKG Data: RSR, no ectopy Assessment/Plan - Billing Assessment: 1. Atypical Chest Wall Pain - troponins negative x2 - EKG with no changes - Reprodicible to left chest wall after patient reports heavy lifting at work - Recommend naprosyn 500mg PO BID x 5 days and re-evaluate as an outpatient - Refer to [facility] this week for follow up, as patient does not have PCP Diet: Regular as tolerated Code Status: Full Admission Status and Rationale: Discharge to home with outpatient follow up with Dr. Hidalgo or Dr. Geronimo at [facility]. Discussed plan with JOEL Jj and Dr. Abby Navarro, [facility].
[2018-10-05 21:09] VITALS: BP 117/68
== END 2018-10-05 21:11 | disposition home or self-care (01) ==
LOC: ED 15:29
DX: R07.89 Other chest pain (principal); J44.9 Chronic obstructive pulmonary disease, unspecified
CPT/HCPCS: 36415; 71046; 80053; 83605; 83735; 83880; 84443; 84484; 85025; 85379; 85610; 93005; 99285; A9270-GY